=== PATIENT | female | born 1945 | race Caucasian/White ===

== ENCOUNTER 2017-08-18 14:52 | Inpatient (IN) | payer MEDICARE, MEDICAID ==
[~2017-08-18] VITALS: Ht 165.1 cm; Wt 89.1 kg
--- NOTE | ~2017-08-18 | PN ---
PATIENT:NARESH SUE MEDICAL RECORD: [id number] LOCATION:[facility] Carrillo[facility]113 ADMISSION DATE: 08/18/17 PROGRESS NOTE DATE OF SERVICE: 08/21/2017 SUBJECTIVE: The patient's case was discussed with staff. She has no new complaint. OBJECTIVE: The patient is in good behavioral control with poor insight about her condition. She tolerates her medicines well. ASSESSMENT: No change in diagnoses. PLAN: The patient denies that she would seek to harm herself or others. She does endorse a lot of depressive symptoms. She wants to go live in an assisted living she has decided, but I do not know if that is going to work given her overall circumstances. I have already met with the treatment team today, but I will bring it up tomorrow at tomorrow's meeting. I am sure the social work supervisor will be speaking to her this afternoon independently of me. TRANSINT:[id number] Voice Confirmation ID: [id number] DOCUMENT ID: [id number] JANE BOONE MD at 1317 CC: [id number] DICTATION DATE: 08/21/17 1252 PAPERHANGER AND PAINTER: 08/21/17 1315 ADM IN [facility] [address] [place] [address]
--- NOTE | ~2017-08-18 | DS ---
PATIENT:NARESH SUE :49 MEDICAL RECORD: [id number] DISCHARGE SUMMARY ADMISSION DATE: 08/18/17 DISCHARGE DATE: 09/11/17 IDENTIFYING DATA: The patient is 72 years old and she is admitted to the hospital on a voluntary basis secondary to suicidal thoughts. The patient recently had been hospitalized at [facility]. She was endorsing numerous neurovegetative depressive symptoms and said that she did not want to be a burden to her children, so she was going to kill herself by taking an overdose of her medications. Many of her symptoms that she was endorsing are longstanding. She could not point to any particular incident that had precipitated a worsening of events recently. HOSPITAL COURSE: The patient was admitted to the hospital and fully evaluated from both a medical, psychological, and social standpoint. She was found to be significantly and severely depressed. In addition to this, she had clear evidence of cognitive decline and based upon observation, examination, and diagnostic testing with the neuropsychologist, she was diagnosed with dementia. She was treated with both memory enhancing compounds and antidepressant medication. She did show significant improvement and was subsequently transitioned to an outpatient status. DISCHARGE DIAGNOSES: AXIS I: Major depression, single episode, severe without psychotic features. Senile dementia of the Alzheimer type. AXIS II: Deferred. AXIS III: Obesity, hypertension, hypothyroidism, hypercholesterolemia, chronic pain. AXIS IV: Moderate stressors. AXIS V: Global assessment of functioning is 45. PLAN: At the time of discharge, the patient was in good behavioral control with no active thoughts of harming herself or others. She was tolerating her medications well. Her long-term prognosis is guarded. TRANSINT:[id number] Voice Confirmation ID: [id number] DOCUMENT ID: [id number] JANE BOONE MD at 1317 CC: [id number] DICTATION DATE: 09/12/17 1134 PHILOSOPHY SPECIALIST: 09/13/17 0859 DIS IN 09/11/17 [place] [address] [place] [address]
--- NOTE | ~2017-08-18 | PN ---
PATIENT:NARESH SUE MEDICAL RECORD: [id number] LOCATION:[facility] Puente ADMISSION DATE: 08/18/17 PROGRESS NOTE DATE OF SERVICE: 08/30/2017 SUBJECTIVE: The patient's case was discussed with staff. She has no new complaint. OBJECTIVE: The patient is in good behavioral control with poor insight about her condition. She tolerates her medicines well. ASSESSMENT: No change in diagnoses. PLAN: Supportive and educational interventions were made. Alf prognosis is guarded. TRANSINT:[id number] Voice Confirmation ID: [id number] DOCUMENT ID: [id number] JANE BOONE MD at 1418 CC: [id number] DICTATION DATE: 08/30/17 1257 SEASONAL CUSTOMER SERVICE ASSOCIATE: 08/30/17 1450 ADM IN [place] [id number] [place] [address]
--- NOTE | ~2017-08-18 | PN ---
PATIENT:NARESH SUE MEDICAL RECORD: [id number] LOCATION:[facility] Puente ADMISSION DATE: 08/18/17 PROGRESS NOTE DATE OF SERVICE: 09/06/2017 SUBJECTIVE: No new complaint. OBJECTIVE: care home placement is pending. We are currently waiting on the doctor's assessment. On exam, mood is euthymic. Affect is bland. Speech is fluent. Content of thought is negative for suicidality. Sensorium unchanged. ASSESSMENT: No change in diagnosis. PLAN: 1. Maintain current medication. 2. Continue supportive therapy. TRANSINT:[id number] Voice Confirmation ID: [id number] DOCUMENT ID: [id number] FRACISCO DOMINGUEZ III, MD at 0143 CC: [id number] DICTATION DATE: 09/06/17 1017 ECHOCARDIOGRAPH TECH: 09/06/17 1452 ADM IN [facility] [address] [place] [address]
--- NOTE | ~2017-08-18 | PN ---
PATIENT:NARESH SUE MEDICAL RECORD: [id number] LOCATION:[facility] Puente ADMISSION DATE: 08/18/17 PROGRESS NOTE DATE OF SERVICE: 09/10/2017 SUBJECTIVE: The patient's case was discussed with staff. She has no new complaint. OBJECTIVE: The patient denies intent to harm herself or others. She is tolerating her medicines well. Eye contact is fair. ASSESSMENT: No change in diagnoses. PLAN: The patient will be transitioned out of the hospital tomorrow. Her long-term prognosis is guarded. Follow up will be with her primary care outpatient physician. TRANSINT:[id number] Voice Confirmation ID: [id number] DOCUMENT ID: [id number] JANE BOONE MD at 1329 CC: [id number] DICTATION DATE: 09/10/17 1318 APPAREL STOCK CHECKER: 09/10/17 1544 ADM IN [place] [id number] [place] [id number]
--- NOTE | ~2017-08-18 | PN ---
PATIENT:NARESH SUE MEDICAL RECORD: [id number] LOCATION:LorenaCAROLE CarrilloAmbreenStephanie ADMISSION DATE: 08/18/17 PROGRESS NOTE DATE OF SERVICE: 08/28/2017 SUBJECTIVE: The patient's case was discussed with staff. She has no new complaint. OBJECTIVE: The patient is in good behavioral control. She is tolerating her medicines well. She has made no statements about wanting to hurt herself. I do anticipate she will be transitioned to the [facility] soon. She is not happy about this. Unfortunately, it just appears that that is the least restrictive environment in which her needs can be met. TRANSINT:[id number] Voice Confirmation ID: [id number] DOCUMENT ID: [id number] JANE BOONE MD at 0808 CC: [id number] DICTATION DATE: 08/28/17 1516 DOCTOR OF PHARMACY: 08/28/17 1544 ADM IN [facility] [address] [place] [address]
--- NOTE | ~2017-08-18 | PN ---
PATIENT:NARESH SUE MEDICAL RECORD: [id number] LOCATION:[facility] Puente ADMISSION DATE: 08/18/17 PROGRESS NOTE DATE OF SERVICE: 09/03/2017 SUBJECTIVE: The patient's case was discussed with staff. She has no new complaint. OBJECTIVE: The patient is in good behavioral control with poor insight about her condition. She tolerates her medicines well. ASSESSMENT: No change in diagnoses. PLAN: Brief supportive and educational interventions were made. Correction prognosis is guarded. The patient has shown significant improvement and I anticipate she can be transitioned out of the hospital soon. TRANSINT:[id number] Voice Confirmation ID: [id number] DOCUMENT ID: [id number] JANE BOONE MD at 1029 CC: [id number] DICTATION DATE: 09/03/17 1135 FENCE REPAIRMAN: 09/03/17 1216 ADM IN [place] [id number] [place] [id number]
--- NOTE | ~2017-08-18 | PN ---
PATIENT:NARESH SUE MEDICAL RECORD: [id number] LOCATION:ClarkeALTAGRACIAWinston Cindi ADMISSION DATE: 08/18/17 PROGRESS NOTE DATE OF SERVICE: 08/27/2017 SUBJECTIVE: The patient's case was discussed with staff. She has no new complaint. OBJECTIVE: The patient is in good behavioral control. She has no thoughts of harming herself or others. She did score 21/[address] Price's testing indicating a significant dementia. She is in need of 28-inyx-a-day supervision and is not capable of making reasonable informed consent decisions about her person or estate. TRANSINT:[id number] Voice Confirmation ID: [id number] DOCUMENT ID: [id number] JANE BOONE MD at 1457 CC: [id number] DICTATION DATE: 08/27/17 1115 VENEER MARKER: 08/27/17 1209 ADM IN [place] [id number] [place] [id number]
--- NOTE | ~2017-08-18 | PN ---
PATIENT:NARESH SUE MEDICAL RECORD: [id number] LOCATION:S[facility] Puente ADMISSION DATE: 08/18/17 PROGRESS NOTE DATE OF SERVICE: 08/31/2017 SUBJECTIVE: No new complaint. The patient states that she is feeling well. OBJECTIVE: The patient has shown considerable improvement. No further crying spells. The patient is calm and cooperative. On exam, mood is euthymic. Affect is pleasant. Speech is fairly fluent. Content of thought is negative for suicidal ideation. Sensorium unchanged. ASSESSMENT: No change in diagnosis. PLAN: 1. Maintain current medication. 2. Continue supportive therapy. TRANSINT:[id number] Voice Confirmation ID: [id number] DOCUMENT ID: [id number] FRACISCO DOMINGUEZ III, MD at 0503 CC: [id number] DICTATION DATE: 08/31/17 1144 SLATE TRIMMER: 08/31/17 1212 ADM IN [facility] [address] [place] [address]
--- NOTE | ~2017-08-18 | PN ---
PATIENT:NARESH SUE MEDICAL RECORD: [id number] LOCATION:S[facility] Puente ADMISSION DATE: 08/18/17 PROGRESS NOTE DATE OF SERVICE: 08/24/2017 SUBJECTIVE: The patient's case was discussed with staff. She has no new complaint. OBJECTIVE: The patient denies intent to harm herself or others. She tolerates her medicines well. ASSESSMENT: No change in diagnoses. PLAN: Brief supportive and educational interventions were made. senior living prognosis is guarded. TRANSINT:[id number] Voice Confirmation ID: [id number] DOCUMENT ID: [id number] JANE BOONE MD at 1204 CC: [id number] DICTATION DATE: 08/24/17 1317 WRAPPER OFF: 08/24/17 1334 ADM IN [place] [id number] [place] [address]
--- NOTE | ~2017-08-18 | PSY ---
PATIENT NAME:NARESH SUE MEDICAL RECORD: [id number] : 49 LOCATION:SARMAD Anderson ADMISSION DATE: 08/18/17 ACCOUNT: [id number] PSYCHIATRIC EVALUATION DATE OF EVALUATION: 08/19/17 IDENTIFYING DATA: The patient is 72 years old and she is admitted to the hospital on a voluntary basis. CHIEF COMPLAINT: Suicidal thoughts. HISTORY OF PRESENT ILLNESS: The patient has recently been hospitalized at [facility]. She is endorsing numerous neurovegetative depressive symptoms. She says that she does not want to be a burden to her children, so she is going to take an overdose of her medicines and kill herself. She says she is going to do this because her family does not really want her and she does not want to be a burden to them. She did endorse many vegetative depressive symptoms, most of which are longstanding even though she claims she has never been treated by a psychiatrist before and claims she has never attempted to harm herself before. She denies psychotic symptoms and symptoms related to substance abuse. PAST MEDICAL HISTORY: Significant for obesity, hypothyroidism, gastroesophageal reflux disease, hypercholesterolemia, and hypertension. PAST PSYCHIATRIC HISTORY: Denied by the patient, but she is taking an antidepressant medication. FAMILY HISTORY: Unknown. ALLERGIES: No known drug allergies. CURRENT MEDICATIONS: Include Synthroid, Protonix, Effexor, Lyrica, [place], Pravachol, Norvasc. SOCIAL HISTORY: The patient is . She has been for a very long time. She has 3 adult children, one of whom live locally. She has no history of drug or alcohol abuse. 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 MENTAL STATUS EXAMINATION: The patient is awake, alert and oriented to person, place and somewhat to time and situation. Her mood is depressed. Her affect is constricted. Thought processes are circumstantial. Memory, concentration, and abstraction abilities are mildly impaired and she denies any active intent to harm herself or others as well as overt psychotic symptoms. ASSETS: Supportive family members. LIABILITIES: Limited insight. DIAGNOSTIC IMPRESSION: AXIS I: Major depression, single episode, severe without psychotic features. AXIS II: Deferred. AXIS III: Obesity, hypertension, hypothyroidism, hypercholesterolemia, chronic pain. AXIS IV: Moderate stressors. AXIS V: Global assessment of functioning is 40. PLAN: At this time, the patient is admitted to the hospital secondary to suicidal thoughts associated with a depressive illness. She will be treated with both mood stabilizing and antidepressant medications. Her long-term prognosis is guarded. TRANSINT:[id number] Voice Confirmation ID: [id number] DOCUMENT ID: [id number] JANE BOONE MD at 1156 CC: [id number] DICTATION DATE: 08/19/17 1214 COMMODITY SPECIALIST: 08/19/17 1235 ADM IN [place] [address] [place] [id number]
--- NOTE | ~2017-08-18 | PN ---
PATIENT:NARESH SUE MEDICAL RECORD: [id number] LOCATION:LINDAWinston Mir113 ADMISSION DATE: 08/18/17 PROGRESS NOTE DATE OF SERVICE: 08/22/2017 SUBJECTIVE: The patient's case was discussed with staff. She has no new complaint. OBJECTIVE: The patient has no suicidal thoughts. She is willing to go back to rehab at the long-term. She says that her mood has improved. ASSESSMENT: No change in diagnoses. PLAN: I anticipate the patient can be transitioned out of the hospital soon if this level of improvement is maintained. TRANSINT:[id number] Voice Confirmation ID: [id number] DOCUMENT ID: [id number] JANE BOONE MD at 1322 CC: [id number] DICTATION DATE: 08/22/17 1338 SHELTERED WORKSHOP WORKER: 08/22/17 [address] [facility] [address] [place] [address]
--- NOTE | ~2017-08-18 | PN ---
PATIENT:NARESH SUE MEDICAL RECORD: [id number] LOCATION:SARMAD Puente ADMISSION DATE: 08/18/17 PROGRESS NOTE DATE OF SERVICE: 08/25/2017 SUBJECTIVE: The patient's case was discussed with staff. She has no new complaint. OBJECTIVE: The patient denies intent to harm herself or others. She generally tolerates her medicines well. Eye contact is poor. ASSESSMENT: No change in diagnoses. PLAN: The patient has no thoughts of harming herself or others. I have reviewed her medicines and I am going to increase the dose of her Effexor slightly. Her long-term prognosis is guarded. TRANSINT:[id number] Voice Confirmation ID: [id number] DOCUMENT ID: [id number] JANE BOONE MD at 1101 CC: [id number] DICTATION DATE: 08/25/17 1222 CHAIN SALES REPRESENTATIVE: 08/25/17 1253 ADM IN [place] [id number] [place] [address]
--- NOTE | ~2017-08-18 | PN ---
PATIENT:NARESH SUE MEDICAL RECORD: [id number] LOCATION:SARMAD Puente ADMISSION DATE: 08/18/17 PROGRESS NOTE DATE OF SERVICE: 09/11/2017 SUBJECTIVE: The patient's case was discussed with staff. She has no new complaint. OBJECTIVE: The patient is in good behavioral control with limited insight about her condition. She has some short-term memory impairment, but no thoughts of harming herself or others. ASSESSMENT: No change in diagnoses. PLAN: Supportive and educational interventions were made. Long-term prognosis is guarded. The patient will be transitioned out of the hospital today and follow up will be with her primary care physician. TRANSINT:[id number] Voice Confirmation ID: [id number] DOCUMENT ID: [id number] JANE BOONE MD at 1127 CC: [id number] DICTATION DATE: 09/11/17 1348 VICE PRESIDENT OF ENGINEERING: 09/11/17 1433 DIS IN 09/11/17 [facility] [address] [place] [address]
--- NOTE | ~2017-08-18 | PN ---
PATIENT:NARESH SUE MEDICAL RECORD: [id number] LOCATION:SARMAD Puente ADMISSION DATE: 08/18/17 PROGRESS NOTE DATE OF SERVICE: 08/29/2017 SUBJECTIVE: The patient's case was discussed with staff. She has no new complaint. OBJECTIVE: The patient denies intent to harm herself or others. She tolerates her medicines well. Eye contact is fair. ASSESSMENT: No change in diagnoses. PLAN: Current medicines and therapies have been reviewed and will be maintained. Long-term prognosis is guarded. TRANSINT:[id number] Voice Confirmation ID: [id number] DOCUMENT ID: [id number] JANE BOONE MD at 1240 CC: [id number] DICTATION DATE: 08/29/17 1252 GIN CLERK: 08/29/17 1310 ADM IN [place] [id number] [place] [address]
--- NOTE | ~2017-08-18 | PN ---
PATIENT:NARESH SUE MEDICAL RECORD: [id number] LOCATION:SARMAD Mir113 ADMISSION DATE: 08/18/17 PROGRESS NOTE DATE OF SERVICE: 08/23/2017 SUBJECTIVE: The patient's case was discussed with staff. She has no new complaint. OBJECTIVE: The patient is in good behavioral control. She has been tearful, but it has been appropriate to the context of what she was discussing. She has no thoughts of self-harm and has not had any since admission or shortly after admission. ASSESSMENT: No change in diagnoses. PLAN: The patient will be transitioned out of the hospital tomorrow. Her long-term prognosis is guarded. Brief supportive and educational interventions were made. TRANSINT:[id number] Voice Confirmation ID: [id number] DOCUMENT ID: [id number] JANE BOONE MD at 1303 CC: [id number] DICTATION DATE: 08/23/17 1340 EQUIPMENT ANALYST: 08/23/17 1358 ADM IN [place] [id number] [place] [address]
--- NOTE | ~2017-08-18 | PN ---
PATIENT:NARESH SUE MEDICAL RECORD: [id number] LOCATION:SARMAD Mir113 ADMISSION DATE: 08/18/17 PROGRESS NOTE DATE OF SERVICE: 09/07/2017 SUBJECTIVE: No new complaint. OBJECTIVE: The patient is continuing to wait on the results of [place] assessment and eventual placement. On exam, mood is euthymic. Affect bland. Speech is somewhat terse. Content of thought shows no suicidal ideation. Sensorium unchanged. ASSESSMENT: No change in diagnosis. PLAN: 1. Continue current medications. 2. Continue supportive therapy. TRANSINT:[id number] Voice Confirmation ID: [id number] DOCUMENT ID: [id number] FRACISCO DOMINGUEZ III, MD at 0549 CC: [id number] DICTATION DATE: 09/07/17 1227 SHELLACKER: 09/07/17 1422 ADM IN [address] [place] [address]
--- NOTE | ~2017-08-18 | PN ---
PATIENT:NARESH SUE MEDICAL RECORD: [id number] LOCATION:SARMAD Mir113 ADMISSION DATE: 08/18/17 PROGRESS NOTE DATE OF SERVICE: 09/05/2017 SUBJECTIVE: No new complaint. OBJECTIVE: The patient remains very cooperative. No further suicidal ideation. We are awaiting results from [place] assessment. On exam, mood is euthymic. Affect is very pleasant. Speech is fluent. Content of thought as noted above. Sensorium unchanged. ASSESSMENT: No change in diagnosis. PLAN: 1. Continue current treatment plan. 2. Continue supportive therapy. TRANSINT:[id number] Voice Confirmation ID: [id number] DOCUMENT ID: [id number] FRACISCO DOMINGUEZ III, MD at 1946 CC: [id number] DICTATION DATE: 09/05/17 1139 FUR CLEANER: 09/05/17 1212 ADM IN [place] [id number] [place] [id number]
--- NOTE | ~2017-08-18 | PN ---
PATIENT:NARESH SUE MEDICAL RECORD: [id number] LOCATION:SARMAD Puente ADMISSION DATE: 08/18/17 PROGRESS NOTE DATE OF SERVICE: 09/04/2017 SUBJECTIVE: No new complaint. OBJECTIVE: The patient is pleasant. No further suicidal ideation. We are awaiting [place] assessment. On exam, mood is very pleasant. Affect is bland. Speech is fluent. Content of thought is negative for suicidal ideation. Sensorium unchanged. ASSESSMENT: No change in diagnosis. PLAN: 1. Maintain current medication. 2. Continue supportive therapy. TRANSINT:[id number] Voice Confirmation ID: [id number] DOCUMENT ID: [id number] FRACISCO DOMINGUEZ III, MD at 1020 CC: [id number] DICTATION DATE: 09/04/17 1148 CUSTOMER COUNTER REPRESENTATIVE: 09/04/17 1211 ADM IN [facility] [address] [place] [address]
[2017-08-18] MEDS ORDERED: ELIQUIS5 MG PO (16:35)
[2017-08-18] MEDS ORDERED: HYDROCODONE-APA1 TAB PO (16:36)
[2017-08-18] MEDS ORDERED: IPRAT-ALBUT 0.5-3 ML UPD (16:38)
[2017-08-18] MEDS ORDERED: NORVASC10 MG PO (16:38)
[2017-08-18] MEDS ORDERED: PROTONIX40 MG PO (16:39)
[2017-08-18] MEDS ORDERED: SYNTHROID88 MCG PO (16:39)
[2017-08-18] MEDS ORDERED: PRAVASTATIN SOD10 MG PO (16:40)
[2017-08-18] MEDS ORDERED: LYRICA75 MG PO (16:41)
[2017-08-18] MEDS ORDERED: EFFEXOR XR75 MG PO (16:42)
[2017-08-18 18:30] VITALS: BP 133/76; BMI 32.7
[2017-08-18 18:31] LABS: BASOPHILS 0.1 % (0-2); EOSINOPHILS 0 % (0-7); HEMATOCRIT 39.4 % (36.0-48.0); HEMOGLOBIN 12.8 g/dL (12-16); IMMATURE GRANULOCYTES 1.6 % (0-5); LYMPHOCYTES 18.5 % (15-50); MCH 30.5 pg (26.0-34.0); MCHC 32.5 g/dL (31.0-37.0); MEAN PLATELET VOLUME 11.6 fL (7.4-10.4); MONOCYTES 6.2 % (2-11); NEUTROPHILS 73.6 % (40-80); PLATELET COUNT 295 10x3/uL (130-400); RBC 4.19 10x6/uL (4.00-5.40); RDW 15.7 % (11.5-14.5); WBC 9.9 10x3/uL (4.8-10.8)
[2017-08-18 18:41] LABS: HEMOGLOBIN A1C 5.2 % (4.8-6.0)
[2017-08-18 18:43] LABS: ALBUMIN 3.5 g/dL (3.4-5.0); BILIRUBIN - TOTAL 0.37 mg/dL (0.2-1.3); CALCIUM 10.2 mg/dL (8.5-10.1); CARBON DIOXIDE 24.9 mmol/L (21.0-32.0); CHOL - HDL RATIO 2.2 ratio (2.3-4.1); CREATININE - SERUM 1.4 mg/dL (0.6-1.3); POTASSIUM - SERUM 4.9 mmol/L (3.5-5.1); PROTEIN - SERUM 7.9 g/dL (6.4-8.2); THYROID STIMULATING HORMONE 3.83 uIU/mL (0.36-3.74)
[2017-08-18 20:03] VITALS: BP 133/76
[2017-08-19 03:40] LABS: APPEARANCE CLEAR (CLEAR); BILIRUBIN NEGATIVE (NEGATIVE); COLOR YELLOW (YELLOW); GLUCOSE 50 mg/dL (NEGATIVE); KETONE NEGATIVE (NEGATIVE); NITRITE NEGATIVE (NEGATIVE); PROTEIN NEGATIVE (NEGATIVE); UROBILINOGEN NORMAL (NORMAL)
[2017-08-19 07:00] VITALS: BP 132/72
[2017-08-19 10:01] VITALS: BMI 32.6
[2017-08-19 19:53] VITALS: BP 150/81
[2017-08-20 08:32] VITALS: BP 111/085
[2017-08-20 19:21] VITALS: BP 170/85
[2017-08-21 07:00] VITALS: BP 131/89
[2017-08-21 08:20] VITALS: Ht 165.1 cm; Wt 89.1 kg
[2017-08-21 19:46] VITALS: BP 118/84
[2017-08-22 06:12] LABS: FOLATE (FOLIC ACID) - SERUM 6.8 ng/mL (>3.0); RAPID PLASMA REAGIN Non Reactive (Non Reactive)
[2017-08-22 08:55] VITALS: BP 143/053
[2017-08-22 19:41] VITALS: BP 128/65
[2017-08-23 07:37] VITALS: BP 156/78
[2017-08-23] MEDS ORDERED: AMPICILLIN TRI500 MG PO (13:37)
[2017-08-23] MEDS ORDERED: LEVOXYL100 MCG PO (13:38)
[2017-08-23] MEDS ORDERED: EFFEXOR50 MG PO (13:38)
[2017-08-23 19:30] VITALS: BP 138/89
[2017-08-24 08:44] VITALS: BP 140/93
[2017-08-24 19:30] VITALS: BP 148/89
[2017-08-25 10:50] VITALS: BP 133/82
[2017-08-25 20:33] VITALS: BP 130/58
[2017-08-26 07:00] VITALS: BP 133/73
[2017-08-26 20:30] VITALS: BP 149/82
[2017-08-27 08:37] VITALS: BP 142/90
[2017-08-27 19:56] VITALS: BP 103/51
[2017-08-28 08:49] VITALS: BP 131/068
[2017-08-29 08:00] VITALS: BP 116/057
[2017-08-29 19:36] VITALS: BP 111/57
[2017-08-30 09:37] VITALS: BP 125/76
[2017-08-30 20:35] VITALS: BP 123/53
[2017-08-31 09:32] VITALS: BP 117/87
[2017-08-31 20:26] VITALS: BP 100/50
[2017-09-01 08:13] VITALS: BP 110/055
[2017-09-02 07:00] VITALS: BP 121/51
[2017-09-02 19:38] VITALS: BP 142/79
[2017-09-03 08:44] VITALS: BP 098/056
[2017-09-03 19:17] VITALS: BP 122/60
[2017-09-04 07:00] VITALS: BP 134/57
[2017-09-04 19:54] VITALS: BP 129/61
[2017-09-05 10:32] VITALS: BP 131/84
[2017-09-05 19:31] VITALS: BP 107/59
[2017-09-06 09:42] VITALS: BP 118/73
[2017-09-06 19:30] VITALS: BP 150/88
[2017-09-07 09:20] VITALS: BP 129/070
[2017-09-07 19:30] VITALS: BP 174/94
[2017-09-08 08:34] VITALS: BP 110/61
[2017-09-08 19:37] VITALS: BP 172/87
[2017-09-09 07:00] VITALS: BP 113/71
[2017-09-09 20:10] VITALS: BP 113/66
[2017-09-10 07:00] VITALS: BP 150/83
[2017-09-10 20:06] VITALS: BP 154/83
[2017-09-11 08:56] VITALS: BP 151/70
== END 2017-09-11 13:45 | disposition home health service (06) | DRG 885 ==
LOC: D.PSYCH 14:52
PROVIDERS: Psychiatry & Neurology Psychiatry
DX: F32.2 Major depressive disorder, single episode, severe without psychotic features (principal); R45.851 Suicidal ideations; N39.0 Urinary tract infection, site not specified; E03.9 Hypothyroidism, unspecified; E66.9 Obesity, unspecified; E78.00 Pure hypercholesterolemia, unspecified; I11.0 Hypertensive heart disease with heart failure; I50.9 Heart failure, unspecified; G89.29 Other chronic pain; E78.5 Hyperlipidemia, unspecified; I48.91 Unspecified atrial fibrillation; J30.9 Allergic rhinitis, unspecified; M19.90 Unspecified osteoarthritis, unspecified site; B95.2 Enterococcus as the cause of diseases classified elsewhere; E55.9 Vitamin D deficiency, unspecified; Z68.32 Body mass index [BMI] 32.0-32.9, adult